=== PATIENT | female | born 1935 ===

== ENCOUNTER 2017-06-08 21:10 | Observation (INO) | payer MEDICARE ==
[2017-06-08 21:10] VITALS: BMI 19.5
[2017-06-08 22:09] LABS: RBC URINE 1 /hpf (0-3); URINE BILIRUBIN NEGATIVE (NEGATIVE); URINE BLOOD NEGATIVE (NEGATIVE); URINE COLOR YELLOW (YELLOW); URINE GLUCOSE (UA) NEG (Normal); URINE KETONE NEGATIVE (NEGATIVE); URINE LEUKOCYTE ESTERASE NEG Leu/uL (Negative); URINE PROTEIN NEGATIVE (NEGATIVE); URINE UROBILINOGEN 0.2-1.0 mg/dL (0.2-1.0); WBC URINE 2 /hpf (0-5)
[2017-06-08 22:36] LABS: BASO % 0.4 % (0.0-2.0); EOS # 0.1 K/uL (0.0-0.7); EOS % 2.1 % (0.0-4.0); HEMATOCRIT 28.2 % (34.0-47.0); LYMPH % 29.1 % (20.0-40.0); MEAN CELL VOLUME 95.7 fl (81.0-99.0); MEAN CORPUSCULAR HEMOGLOBIN 32.6 pg (27.0-31.0); MEAN CORPUSCULAR HGB CONC 34.1 g/dL (33.0-37.0); MONO # 0.6 K/uL (0.0-0.8); MONO % 8.4 % (0.0-10.0); NEUT # 4.2 K/uL (1.8-7.0); WHITE BLOOD COUNT 6.9 K/uL (4.8-10.8)
[2017-06-08 22:43] LABS: PARTIAL THROMBOPLASTIN TIME 29.3 Seconds (25.6-37.1)
[2017-06-08 22:46] LABS: CALCIUM 9.5 mg/dL (8.4-10.2); POTASSIUM 3.8 MMOL/L (3.6-5.0)
[2017-06-08 22:57] LABS: TROPONIN I 0.019 ng/mL (0.00-0.120)
--- NOTE | 2017-06-08 23:13 | CT ---
EXAM: CT Head Without Intravenous Contrast CLINICAL HISTORY: 81 years old, female; Injury or trauma; Fall; Additional info: Head injury, confusion TECHNIQUE: Axial computed tomography images of the head/brain without intravenous contrast. All CT scans at this facility use one or more dose reduction techniques, viz.: automated exposure control; ma/kV adjustment per patient size (including targeted exams where dose is matched to indication; i.e. head); or iterative reconstruction technique. Coronal and sagittal reformatted images were created and reviewed. COMPARISON: No relevant prior studies available. FINDINGS: Brain: [id number] atrophy. No intracranial hemorrhage. No mass. Several scattered foci of decreased attenuation within periventricular/subcortical white matter. No edema. Ventricles: No hydrocephalus. Bones/joints: No acute fracture. Soft tissues: Unremarkable. Vasculature: Atherosclerotic disease of intracranial arteries. Sinuses: No acute sinusitis. Mastoid air cells: No mastoid effusion. Orbits: Unremarkable as visualized. IMPRESSION: 1. No intracranial hemorrhage. 2. Nonspecific white matter changes. 3. Incidental/non-acute findings are described above.
--- NOTE | 2017-06-08 23:55 | ED PDOC ---
HPI: Altered Mental Status Time Seen by Provider: 06/08/17 21:24 Chief Complaint (Nursing): Chest Pain Chief Complaint (Provider): chest pain History Per: Patient, Family (granddaughter) History/Exam Limitations: Clinical Condition (dementia) Onset/Duration Of Symptoms: Hrs (x3) Current Symptoms Are (Timing): Still Present Additional Complaint(s): 81 year old female with previous medical history of diabetes, hypertension and hypercholesterolemia, who presents to the emergency department with a complaint of chest pain radiating to left arm ongoing 3 hours prior to arrival. Denied any shortness of breath. Patient's granddaughter reported patient has been confused lately with history of frequent falls that resulted in a head injury. PMD: Kam Nowak Jr. NIHSS Stroke Scale - Date/Time Evaluation Performed Date Performed: 06/08/17 Time Performed: 21:30 When Was NIHSS Performed: Baseline - How Severe is the Stroke Level of Consciousness: 0=Alert LOC to Questions: 0=Both comments correct LOC to commands: 0=Obeys both correctly Best Gaze: 0=Normal Visual: 0=No visual loss Facial: 0=Normal Motor Arm - Left: 0=No drift Motor Arm - Right: 0=No drift Motor Leg - Left: 0=No drift Motor Leg - Right: 0=No drift Limb Ataxia: 0=Absent Sensory: 0=Normal Best Language: 0=No aphasia Dysarthia: 0=Normal articulation Extinction & Inattention (Neglect): 0=Normal, no object Score: 0 Severity Of Stroke: 0 = No Stroke Past Medical History Reviewed: Historical Data, Nursing Documentation, Vital Signs Vital Signs: Last Vital Signs Temp 97.3 F L 06/08/17 21:13 Pulse 77 06/08/17 21:13 Resp 16 06/08/17 21:13 BP 143/59 L 06/08/17 21:13 Pulse Ox 98 06/08/17 21:13 - Medical History PMH: Anemia, Anxiety, Cardia Arrhythmia, CHF, Depression, HTN, Hypercholesterolemia, Hypothyroidism Denies: Chronic Kidney Disease - Surgical History Surgical History: Endoscopy, Pacemaker Denies: No Surg Hx - Family History Family History: States: Unknown Family Hx - Social History Current smoker - smoking cessation education provided: No Ex-Smoker (has not smoked in the last 12 months): No Alcohol: None Drugs: Denies - Immunization History Hx Tetanus Toxoid Vaccination: No Hx Influenza Vaccination: No - Home Medications Home Medications: Ambulatory Orders Medication Instructions Recorded Carvedilol [Coreg] 1 tab PO BID 05/31/16 Digoxin [Lanoxin] 1 tab PO DAILY 05/31/16 Escitalopram [Lexapro] 1 tab PO DAILY 05/31/16 Fenofibrate,Micronized [Lofibra] 1 cap PO HS 05/31/16 Furosemide [Lasix] 1 tab PO DAILY 05/31/16 Glimepiride [Amaryl] 1 tab PO BID 05/31/16 Insulin Aspart/Insulin Aspar 35 unit SC BID 05/31/16 [Novolog Mix 70/30 (70/30 units/ml)] Levothyroxine [Synthroid] 1 tab PO DAILY 05/31/16 Memantine [Namenda] 1 tab PO DAILY 05/31/16 Valacyclovir HCl [Valacyclovir] 1 tab PO BID PRN 05/31/16 Zolpidem [Ambien] 1 tab PO HS 05/31/16 Aspirin [Ecotrin] 81 mg PO DAILY 07/18/16 Carvedilol [Coreg] 6.25 mg PO BID 07/18/16 Clopidogrel [Plavix] 75 mg PO DAILY 07/18/16 Digoxin [Lanoxin] 0.25 mg PO DAILY 07/18/16 Escitalopram [Lexapro] 10 mg PO DAILY 07/18/16 Fenofibrate,Micronized 134 mg PO HS 07/18/16 [Fenofibrate] Furosemide [Lasix] 40 mg PO DAILY 07/18/16 Glimepiride [Amaryl] 4 mg PO BID 07/18/16 Insulin Aspart/Insulin Aspar 30 units SUBCUT BID 07/18/16 [Novolog Mix 70/30 (70/30 units/ml) 10 ml] Levothyroxine [Synthroid] 0.075 mg PO DAILY 07/18/16 Memantine [Namenda] 5 mg PO DAILY 07/18/16 Ramipril [Altace] 10 mg PO DAILY 07/18/16 Zolpidem [Ambien] 10 mg PO HS 07/18/16 oxyCODONE/Acetaminophen [Percocet 1 tab PO .Q4-6 PRN 07/18/16 5/325 mg Tab] - Allergies Allergies/Adverse Reactions: Allergies Allergy/AdvReac Type Severity Reaction Status Date / Time No Known Allergies Allergy Verified 07/08/16 13:58 Review of Systems ROS Statement: Except As Marked, All Systems Reviewed And Found Negative Cardiovascular: Positive for: Chest Pain Respiratory: Negative for: Shortness of Breath Musculoskeletal: Positive for: Arm Pain (left) Neurological: Positive for: Confusion Physical Exam - Reviewed Nursing Documentation Reviewed: Yes Vital Signs Reviewed: Yes - Physical Exam Appears: Positive for: Well, Non-toxic, No Acute Distress Head Exam: Positive for: ATRAUMATIC, NORMAL INSPECTION, NORMOCEPHALIC Skin: Positive for: Normal Color Eye Exam: Positive for: Normal appearance, EOMI, PERRL. Negative for: Nystagmus ENT: Positive for: Normal ENT Inspection Neck: Positive for: Normal, Painless ROM Cardiovascular/Chest: Positive for: Regular Rate, Rhythm, Chest Non Tender Respiratory: Positive for: Normal Breath Sounds. Negative for: Decreased Breath Sounds, Respiratory Distress Extremity: Positive for: Normal ROM. Negative for: Tenderness, Pedal Edema, Calf Tenderness Neurologic/Psych: Positive for: Alert, flooring installer II-XII (intact), Oriented, Gait ( steady). Negative for: Motor/Sensory Deficits, Aphasia, Facial Droop - Laboratory Results Result Diagrams: 06/08/17 22:31 06/08/17 22:31 - ECG O2 Sat by Pulse Oximetry: 98 (RA) Pulse Ox Interpretation: Normal Medical Decision Making Medical Decision Making: Initial Impression: ACS vs. electrolyte abnormality vs. UTI Initial Plan: * CT head without contrast * EKG * BMP * Digoxin * Troponin I * CBC * PTT * PT * CXR * Aspirin chewable 162mg PO * Urine culture * Xray shoulder (left) * Urinalysis * Admit to hospital Scribe Attestation: Documented by Kate Ramires, acting as a scribe for Abdelrahman Reeves MD. Provider Scribe Attestation: All medical record entries made by the Scribe were at my direction and personally dictated by me. I have reviewed the chart and agree that the record accurately reflects my personal performance of the history, physical exam, medical decision making, and the department course for this patient. I have also personally directed, reviewed, and agree with the discharge instructions and disposition. Disposition - Disposition Disposition Time: 23:36
--- NOTE | 2017-06-09 00:22 | ED PDOC ---
HPI: Chest Pain Time Seen by Provider: 06/08/17 21:24 Chief Complaint (Nursing): Chest Pain Chief Complaint (Provider): Chest Pain History Per: Patient, Family (granddaughter) History/Exam Limitations: clinical condition (dementia) Onset/Duration Of Symptoms: Hrs (x3) Current Symptoms Are (Timing): Still Present Additional Complaint(s): 81 year old female with previous medical history of diabetes, hypertension and hypercholesterolemia, who presents to the emergency department with a complaint of chest pain radiating to left arm ongoing 3 hours prior to arrival. Denied any shortness of breath. Patient's granddaughter reported patient has been confused lately with history of frequent falls that resulted in a head injury. PMD: Kam Nowak Jr. NIHSS Stroke Scale - Date/Time Evaluation Performed Date Performed: 06/09/17 When Was NIHSS Performed: Baseline - How Severe is the Stroke Level of Consciousness: 0=Alert LOC to Questions: 0=Both comments correct LOC to commands: 0=Obeys both correctly Best Gaze: 0=Normal Visual: 0=No visual loss Facial: 0=Normal Motor Arm - Left: 0=No drift Motor Arm - Right: 0=No drift Motor Leg - Left: 0=No drift Motor Leg - Right: 0=No drift Limb Ataxia: 0=Absent Sensory: 0=Normal Best Language: 0=No aphasia Dysarthia: 0=Normal articulation Extinction & Inattention (Neglect): 0=Normal, no object Score: 0 Severity Of Stroke: 0 = No Stroke Past Medical History Reviewed: Historical Data, Nursing Documentation, Vital Signs Vital Signs: Last Vital Signs Temp 98.3 F 06/09/17 01:40 Pulse 70 06/09/17 02:03 Resp 18 06/09/17 02:03 BP 154/55 H 06/09/17 01:40 Pulse Ox 99 06/09/17 01:40 - Medical History PMH: Anemia, Anxiety, Cardia Arrhythmia, CHF, Depression, Diabetes, HTN, Hypercholesterolemia, Hypothyroidism Denies: Chronic Kidney Disease - Surgical History Surgical History: Endoscopy, Pacemaker Denies: No Surg Hx - Family History Family History: States: Unknown Family Hx - Social History Current smoker - smoking cessation education provided: No Ex-Smoker (has not smoked in the last 12 months): No Alcohol: None Drugs: Denies - Immunization History Hx Tetanus Toxoid Vaccination: No Hx Influenza Vaccination: No - Home Medications Home Medications: Ambulatory Orders Medication Instructions Recorded Escitalopram [Lexapro] 1 tab PO DAILY 05/31/16 Fenofibrate,Micronized [Lofibra] 1 cap PO HS 05/31/16 Memantine [Namenda] 1 tab PO DAILY 05/31/16 Valacyclovir HCl [Valacyclovir] 1 tab PO BID PRN 05/31/16 Zolpidem [Ambien] 1 tab PO HS 05/31/16 Aspirin [Ecotrin] 81 mg PO DAILY 07/18/16 Carvedilol [Coreg] 6.25 mg PO BID 07/18/16 Clopidogrel [Plavix] 75 mg PO DAILY 07/18/16 Digoxin [Lanoxin] 0.25 mg PO DAILY 07/18/16 Furosemide [Lasix] 40 mg PO DAILY 07/18/16 Glimepiride [Amaryl] 4 mg PO BID 07/18/16 Insulin Aspart/Insulin Aspar 30 units SUBCUT BID 07/18/16 [Novolog Mix 70/30 (70/30 units/ml) 10 ml] Levothyroxine [Synthroid] 0.075 mg PO DAILY 07/18/16 Memantine [Namenda] 5 mg PO DAILY 07/18/16 Ramipril [Altace] 10 mg PO DAILY 07/18/16 Zolpidem [Ambien] 10 mg PO HS 07/18/16 oxyCODONE/Acetaminophen [Percocet 1 tab PO .Q4-6 PRN 07/18/16 5/325 mg Tab] - Allergies Allergies/Adverse Reactions: Allergies Allergy/AdvReac Type Severity Reaction Status Date / Time No Known Allergies Allergy Verified 07/08/16 13:58 Review of Systems ROS Statement: Except As Marked, All Systems Reviewed And Found Negative Cardiovascular: Positive for: Chest Pain Respiratory: Negative for: Shortness of Breath Musculoskeletal: Positive for: Arm Pain (left) Neurological: Positive for: Confusion (dementia hx) Physical Exam - Reviewed Nursing Documentation Reviewed: Yes Vital Signs Reviewed: Yes - Physical Exam Appears: Positive for: Well, Non-toxic, No Acute Distress Head Exam: Positive for: ATRAUMATIC, NORMAL INSPECTION, NORMOCEPHALIC Skin: Positive for: Normal Color Eye Exam: Positive for: Normal appearance ENT: Positive for: Normal ENT Inspection Neck: Positive for: Normal, Painless ROM Cardiovascular/Chest: Positive for: Regular Rate, Rhythm, Chest Non Tender Respiratory: Positive for: Normal Breath Sounds. Negative for: Decreased Breath Sounds, Respiratory Distress Extremity: Positive for: Normal ROM. 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 Negative for: Motor/Sensory Deficits, Aphasia - Laboratory Results Result Diagrams: 06/08/17 22:31 06/08/17 22:31 - ECG O2 Sat by Pulse Oximetry: 98 (RA) Pulse Ox Interpretation: Normal Medical Decision Making Medical Decision Making: Initial Impression: ACS vs. electrolyte abnormality vs. UTI Initial Plan: * CT head without contrast * EKG * BMP * Digoxin * Troponin I * CBC * PTTPT * CXR * Aspirin chewable 162mg PO * Urine culture * Xray shoulder (left) * Urinalysis * Admit to hospital 030 Pt. has signifcant cardiac risk factors requiring OBS for r/o ACS with serial troponins and continuous cardiac monitoring. Dr. Chacko aware. Scribe Attestation: Documented by Kate Ramires, acting as a scribe for Abdelrahman Reeves MD. Provider Scribe Attestation: All medical record entries made by the Scribe were at my direction and personally dictated by me. I have reviewed the chart and agree that the record accurately reflects my personal performance of the history, physical exam, medical decision making, and the department course for this patient. I have also personally directed, reviewed, and agree with the discharge instructions and disposition. Disposition - Clinical Impression Clinical Impression: Chest pain - Patient ED Disposition Is Patient to be Admitted: No - Disposition Disposition Time: 00:30 Condition: STABLE
[2017-06-09 05:47] LABS: HEMATOCRIT 27.2 % (34.0-47.0); MEAN CELL VOLUME 96.7 fl (81.0-99.0); MEAN CORPUSCULAR HGB CONC 34.1 g/dL (33.0-37.0); WHITE BLOOD COUNT 5.6 K/uL (4.8-10.8)
[2017-06-09] MEDS ORDERED: Levothyroxine 75 MCG TAB PO SCH (06:30)
[2017-06-09] MEDS: Insulin Lispro (humaLOG) 100 Units/ml Inj SC SCH ×3 (06:34→16:32)
[2017-06-09 07:07] LABS: POTASSIUM 3.8 MMOL/L (3.6-5.0)
[2017-06-09 07:18] LABS: TROPONIN I 0.024 ng/mL (0.00-0.120)
[2017-06-09 08:02] LABS: THYROID STIMULATING HORMONE 1.14 mIU/ML (0.46-4.68)
--- NOTE | 2017-06-09 08:06 | RAD ---
HISTORY: cp COMPARISON: No prior. TECHNIQUE: Chest PA and lateral FINDINGS: LUNGS: No active pulmonary disease. PLEURA: No significant pleural effusion identified. No pneumothorax apparent. CARDIOVASCULAR: Implanted defibrillator, pacemaker device identified by an apparent left subclavian approach with 2 leads identified in the plane of the heart. Cardiac size appears normal. No pulmonary vascular derangement identified. OSSEOUS STRUCTURES: No significant abnormalities. VISUALIZED UPPER ABDOMEN: Normal. OTHER FINDINGS: None. IMPRESSION: No acute cardiopulmonary disease appreciated. Pacemaker/defibrillator in position.
--- NOTE | 2017-06-09 08:16 | RAD ---
PROCEDURE: Radiographs of the Left Shoulder HISTORY: s/p fall COMPARISON: No prior. FINDINGS: BONES: No acute fracture or destructive bony lesion identified. JOINTS: Degenerative changes are mild at the acromioclavicular and glenohumeral joints. No subluxation or dislocation. SOFT TISSUES: Normal. OTHER FINDINGS: Incidental note is made of cardiac pacemaker/ did implanted defibrillator in position with generator the left pectoralis region and leads extending into the mediastinum. IMPRESSION: No acute fracture or dislocation left shoulder. Limited degenerative changes are identified as per above.
[2017-06-09] MEDS ORDERED: INSULIN ASPAR SUBCUT SCH (09:00)
[2017-06-09] MEDS ORDERED: Digoxin 250 mcg (0.25 mg) Tab PO SCH (09:00)
[2017-06-09] MEDS ORDERED: Patient's Own Med (Glimepiride [Amaryl] 4 MG) PO SCH (09:00)
[2017-06-09] MEDS ORDERED: Patient's Own Med (Ramipril [Altace] 10 MG) PO SCH (09:00)
[2017-06-09] MEDS ORDERED: INSULIN ASPART SUBCUT SCH (09:00)
[2017-06-09] MEDS ORDERED: [UNRECOGNIZED DRUG - OTHER] SUBCUT SCH (09:00)
[2017-06-09] MEDS: GlipiZIDE 10 mg SR Tab PO SCH ×2 (09:13→16:31)
[2017-06-09] MEDS: Insulin Lispro Mix 75/25 100 units/ml (HumaLog) 10ml SC SCH ×2 (09:15→16:39)
[2017-06-09 09:23] VITALS: PULSE 64
--- NOTE | 2017-06-09 10:25 | CP.PCM.CON ---
History of Present Illness - History of Present Illness History of Present Illness: This 81- year-old female, a diabetic for more than 20 years and a hypertensive came to the emergency room complaining of chest discomfort quite unconnected to her physical activities. The patient is known to have peripheral vascular disease and has had episodes of claudication on walking briskly. Her daughter indicates that she also had had a myocardial infarction some years back but no coronary intervention was done. She required a permanent pacemaker 2 years back which was implanted for slow heartbeat. The patient denies any symptoms of congestive cardiac failure. Physical examination shows an elderly lady who is alert awake weren't and afebrile. Her heart rate was 70 bpm regular and the telemetric showed mostly atrial sensed ventricular paced rhythm. Her blood pressure chano 140/70 mmHg in the right upper extremity. Her pedal pulses were not palpable. Her extremities were warm her nailbeds were pink was no central or peripheral cyanosis. A brief bruit was audible on the right carotid artery. Her jugular venous pressure was not elevated and there was no edema over her lower extremities. The apex was vaguely felt in the 6 nightly heaving in character. The first heart sound was normal. A long apical systolic murmur of mitral regurgitation was evident. There was no S3 gallop. There were no rales. Abdomen was soft liver and spleen are not palpable. Her electrocardiogram shows sinus rhythm with a nonspecific intraventricular conduction abnormality and attendant ST-T abnormalities. There were no Q waves on the electrocardiogram. Her labs show stable troponin levels indicating no evidence of myocyte injury. She had a mild degree of azotemia and a depressed GFR indicated of diabetic nephropathy. Impression: Atypical chest pain no evidence of acute coronary syndrome in a patient with known coronary artery disease and peripheral arterial disease as well as carotid bruit. Status post DDD pacemaker implant. 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 Past Patient History - Past Medical History & Family History Past Medical History?: Yes - Past Social History Alcohol: None Drugs: Denies - CARDIAC Hx Cardia Arrhythmia: Yes Hx Congestive Heart Failure: Yes Hx Hypercholesterolemia: Yes Hx Hypertension: Yes Hx Pacemaker: Yes - PULMONARY Hx Respiratory Disorders: No - NEUROLOGICAL Hx Neurological Disorder: Yes Hx Dementia: Yes - HEENT Hx HEENT Problems: No - RENAL Hx Chronic Kidney Disease: No - ENDOCRINE/METABOLIC Hx Hypothyroidism: Yes - HEMATOLOGICAL/ONCOLOGICAL Hx Anemia: Yes - INTEGUMENTARY Hx Dermatological Problems: No - MUSCULOSKELETAL/RHEUMATOLOGICAL Hx Musculoskeletal Disorders: Yes Hx Arthritis: Yes Hx Falls: Yes - GASTROINTESTINAL Hx Gastrointestinal Disorders: No - GENITOURINARY/GYNECOLOGICAL Hx Genitourinary Disorders: Yes Hx Incontinence: Yes (STRESS) Hx Reproductive Disorders: No - PSYCHIATRIC Hx Anxiety: Yes Hx Depression: Yes - SURGICAL HISTORY Hx Surgeries: Yes Hx Cataract Extraction: Yes (OU) Hx Section: Yes Hx Hysterectomy: Yes - ANESTHESIA Hx Anesthesia: Yes Hx Anesthesia Reactions: No Hx Malignant Hyperthermia: No Has any member of the family had a problem w/ anesthesia?: No Meds Allergies/Adverse Reactions: Allergies Allergy/AdvReac Type Severity Reaction Status Date / Time No Known Allergies Allergy Verified 07/08/16 13:58 - Medications Medications: Current Medications Carvedilol (Coreg) 6.25 mg PO BID [facility] Clopidogrel Bisulfate (Plavix) 75 mg PO DAILY [facility] Last Admin: 06/09/17 09:21 Dose: 75 mg Digoxin (Lanoxin) 0.25 mg PO DAILY [facility] Last Admin: 06/09/17 09:14 Dose: 0.25 mg Escitalopram Oxalate (Lexapro) 10 mg PO DAILY [facility] Last Admin: 06/09/17 09:13 Dose: 10 mg Fenofibrate (Tricor) 145 mg PO HS [facility] Furosemide (Lasix) 40 mg PO DAILY [facility] Last Admin: 06/09/17 09:21 Dose: 40 mg Glipizide (Glucotrol Xl) 10 mg PO BIDWM [facility] Last Admin: 06/09/17 09:13 Dose: 10 mg Heparin Sodium (Porcine) (Heparin) 5,000 units SC Q8 [facility] PRN Reason: Protocol Last Admin: 06/09/17 09:17 Dose: 5,000 units Insulin Human Lispro (Humalog) 0 units SC ACHS [facility] PRN Reason: Protocol Last Admin: 06/09/17 06:34 Dose: 2 units Insulin Lispro Protam/Lispro Human (Humalog Mix 75/25) 30 units SC BID [facility] Last Admin: 06/09/17 09:15 Dose: 30 units Levothyroxine Sodium (Synthroid) 75 mcg PO DAILY@0630 [facility] Memantine (Namenda) 5 mg PO DAILY [facility] Ramipril (Altace) 10 mg PO DAILY [facility] Last Admin: 06/09/17 09:14 Dose: 10 mg Zolpidem Tartrate (Ambien) 5 mg PO HS PRN PRN Reason: Sleep Results - Vital Signs Recent Vital Signs: Last Vital Signs Temp 97.6 F 06/09/17 07:58 Pulse 59 L 06/09/17 07:58 Resp 18 06/09/17 07:58 BP 144/65 06/09/17 09:21 Pulse Ox 98 06/09/17 07:58 - Labs Result Diagrams: 06/09/17 05:34 06/09/17 06:00 Labs: Laboratory Results - last 24 hr 06/08/17 06/08/17 06/08/17 21:55 22:31 22:31 WBC 6.9 RBC 2.94 L Hgb 9.6 L Hct 28.2 L MCV 95.7 MCH 32.6 H MCHC 34.1 RDW 13.0 Plt Count 155 MPV 8.0 Neut % (Auto) 60.0 Lymph % (Auto) 29.1 [place] % (Auto) 8.4 Eos % (Auto) 2.1 Baso % (Auto) 0.4 Neut # 4.2 Lymph # 2.0 [place] # 0.6 Eos # 0.1 Baso # 0.0 PT INR APTT Sodium 135 Potassium 3.8 Chloride 98 Carbon Dioxide 27 Anion Gap 14 BUN 48 H Creatinine 1.5 H Est GFR ( Amer) 40 Est GFR (Non-Af Amer) 33 POC Glucose (mg/dL) Random Glucose 94 Calcium 9.5 Troponin I 0.0190 Triglycerides Cholesterol LDL Cholesterol Direct HDL Cholesterol TSH 3rd Generation Urine Color Yellow Urine Clarity Clear Urine pH 6.0 Ur Specific Sanderson 1.008 Urine Protein Negative Urine Glucose (UA) Neg Urine Ketones Negative Urine Blood Negative Urine Nitrate Negative Urine Bilirubin Negative Urine Urobilinogen 0.2-1.0 Ur Leukocyte Esterase Neg Urine RBC (Auto) 1 Urine Microscopic WBC 2 Ur Squamous Epith Cells 1 Digoxin 06/08/17 06/08/17 06/09/17 22:31 22:31 00:06 WBC RBC Hgb Hct MCV MCH MCHC RDW Plt Count MPV Neut % (Auto) Lymph % (Auto) [place] % (Auto) Eos % (Auto) Baso % (Auto) Neut # Lymph # [place] # Eos # Baso # PT 12.4 INR 1.1 APTT 29.3 Sodium Potassium Chloride Carbon Dioxide Anion Gap BUN Creatinine Est GFR ( Amer) Est GFR (Non-Af Amer) POC Glucose (mg/dL) 70 Random Glucose Calcium Troponin I Triglycerides Cholesterol LDL Cholesterol Direct HDL Cholesterol TSH 3rd Generation Urine Color Urine Clarity Urine pH Ur Specific Sanderson Urine Protein Urine Glucose (UA) Urine Ketones Urine Blood Urine Nitrate Urine Bilirubin Urine Urobilinogen Ur Leukocyte Esterase Urine RBC (Auto) Urine Microscopic WBC Ur Squamous Epith Cells Digoxin 1.7 06/09/17 06/09/17 06/09/17 05:28 05:34 06:00 WBC 5.6 RBC 2.81 L Hgb 9.3 L Hct 27.2 L MCV 96.7 MCH 33.0 H MCHC 34.1 RDW 13.0 Plt Count 146 MPV Neut % (Auto) Lymph % (Auto) [place] % (Auto) Eos % (Auto) Baso % (Auto) Neut # Lymph # [place] # Eos # Baso # PT INR APTT Sodium 136 Potassium 3.8 Chloride 97 L Carbon Dioxide 28 Anion Gap 15 BUN 46 H Creatinine 1.3 H Est GFR ( Amer) 48 Est GFR (Non-Af Amer) 39 POC Glucose (mg/dL) 223 H Random Glucose 239 H Calcium 9.0 Troponin I 0.0240 Triglycerides Cholesterol LDL Cholesterol Direct HDL Cholesterol TSH 3rd Generation Urine Color Urine Clarity Urine pH Ur Specific Sanderson Urine Protein Urine Glucose (UA) Urine Ketones Urine Blood Urine Nitrate Urine Bilirubin Urine Urobilinogen Ur Leukocyte Esterase Urine RBC (Auto) Urine Microscopic WBC Ur Squamous Epith Cells Digoxin 06/09/17 06:00 WBC RBC Hgb Hct MCV MCH MCHC RDW Plt Count MPV Neut % (Auto) Lymph % (Auto) [place] % (Auto) Eos % (Auto) Baso % (Auto) Neut # Lymph # [place] # Eos # Baso # PT INR APTT Sodium Potassium Chloride Carbon Dioxide Anion Gap BUN Creatinine Est GFR ( Amer) Est GFR (Non-Af Amer) POC Glucose (mg/dL) Random Glucose Calcium Troponin I Triglycerides 225 H Cholesterol 148 LDL Cholesterol Direct 72 HDL Cholesterol 24 L TSH 3rd Generation 1.14 Urine Color Urine Clarity Urine pH Ur Specific Sanderson Urine Protein Urine Glucose (UA) Urine Ketones Urine Blood Urine Nitrate Urine Bilirubin Urine Urobilinogen Ur Leukocyte Esterase Urine RBC (Auto) Urine Microscopic WBC Ur Squamous Epith Cells Digoxin
[2017-06-09 15:33] VITALS: RESP 20
--- NOTE | 2017-06-09 15:52 | CARD ---
APPROVED REPORT EKG Measurement Heart [id number] <Conclusion> Normal sinus rhythm Nonspecific intraventricular block Abnormal ECG
--- NOTE | 2017-06-09 17:52 | CP.PCM.HP ---
Past Patient History - Past Medical History & Family History Past Medical History?: Yes - Past Social History Alcohol: None Drugs: Denies - CARDIAC Hx Cardia Arrhythmia: Yes Hx Congestive Heart Failure: Yes Hx Hypercholesterolemia: Yes Hx Hypertension: Yes Hx Pacemaker: Yes - PULMONARY Hx Respiratory Disorders: No - NEUROLOGICAL Hx Neurological Disorder: Yes Hx Dementia: Yes - HEENT Hx HEENT Problems: No - RENAL Hx Chronic Kidney Disease: No - ENDOCRINE/METABOLIC Hx Hypothyroidism: Yes - HEMATOLOGICAL/ONCOLOGICAL Hx Anemia: Yes - INTEGUMENTARY Hx Dermatological Problems: No - MUSCULOSKELETAL/RHEUMATOLOGICAL Hx Musculoskeletal Disorders: Yes Hx Arthritis: Yes Hx Falls: Yes - GASTROINTESTINAL Hx Gastrointestinal Disorders: No - GENITOURINARY/GYNECOLOGICAL Hx Genitourinary Disorders: Yes Hx Incontinence: Yes (STRESS) Hx Reproductive Disorders: No - PSYCHIATRIC Hx Anxiety: Yes Hx Depression: Yes - SURGICAL HISTORY Hx Surgeries: Yes Hx Cataract Extraction: Yes (OU) Hx Section: Yes Hx Hysterectomy: Yes - ANESTHESIA Hx Anesthesia: Yes Hx Anesthesia Reactions: No Hx Malignant Hyperthermia: No Has any member of the family had a problem w/ anesthesia?: No Meds Allergies/Adverse Reactions: Allergies Allergy/AdvReac Type Severity Reaction Status Date / Time No Known Allergies Allergy Verified 07/08/16 13:58 Results - Vital Signs Recent Vital Signs: Last Vital Signs Temp 98.1 F 06/09/17 15:32 Pulse 63 06/09/17 16:31 Resp 20 06/09/17 15:32 BP 173/56 H 06/09/17 16:31 Pulse Ox 98 06/09/17 15:32 - Labs Result Diagrams: 06/09/17 05:34 06/09/17 06:00 Labs: Laboratory Results - last 24 hr 06/08/17 06/08/17 06/08/17 21:55 22:31 22:31 WBC 6.9 RBC 2.94 L Hgb 9.6 L Hct 28.2 L MCV 95.7 MCH 32.6 H MCHC 34.1 RDW 13.0 Plt Count 155 MPV 8.0 Neut % (Auto) 60.0 Lymph % (Auto) 29.1 [place] % (Auto) 8.4 Eos % (Auto) 2.1 Baso % (Auto) 0.4 Neut # 4.2 Lymph # 2.0 [place] # 0.6 Eos # 0.1 Baso # 0.0 PT INR APTT Sodium 135 Potassium 3.8 Chloride 98 Carbon Dioxide 27 Anion Gap 14 BUN 48 H Creatinine 1.5 H Est GFR ( Amer) 40 Est GFR (Non-Af Amer) 33 POC Glucose (mg/dL) Random Glucose 94 Hemoglobin A1c Calcium 9.5 Troponin I 0.0190 Triglycerides Cholesterol LDL Cholesterol Direct HDL Cholesterol TSH 3rd Generation Urine Color Yellow Urine Clarity Clear Urine pH 6.0 Ur Specific [place] 1.008 Urine Protein Negative Urine Glucose (UA) Neg Urine Ketones Negative Urine Blood Negative Urine Nitrate Negative Urine Bilirubin Negative Urine Urobilinogen 0.2-1.0 Ur Leukocyte Esterase Neg Urine RBC (Auto) 1 Urine Microscopic WBC 2 Ur Squamous Epith Cells 1 Digoxin 06/08/17 06/08/17 06/09/17 22:31 22:31 00:06 WBC RBC Hgb Hct MCV MCH MCHC RDW Plt Count MPV Neut % (Auto) Lymph % (Auto) [place] % (Auto) Eos % (Auto) Baso % (Auto) Neut # Lymph # [place] # Eos # Baso # PT 12.4 INR 1.1 APTT 29.3 Sodium Potassium Chloride Carbon Dioxide Anion Gap BUN Creatinine Est GFR ( Amer) Est GFR (Non-Af Amer) POC Glucose (mg/dL) 70 Random Glucose Hemoglobin A1c Calcium Troponin I Triglycerides Cholesterol LDL Cholesterol Direct HDL Cholesterol TSH 3rd Generation Urine Color Urine Clarity Urine pH Ur Specific [place] Urine Protein Urine Glucose (UA) Urine Ketones Urine Blood Urine Nitrate Urine Bilirubin Urine Urobilinogen Ur Leukocyte Esterase Urine RBC (Auto) Urine Microscopic WBC Ur Squamous Epith Cells Digoxin 1.7 06/09/17 06/09/17 06/09/17 05:28 05:34 06:00 WBC 5.6 RBC 2.81 L Hgb 9.3 L Hct 27.2 L MCV 96.7 MCH 33.0 H MCHC 34.1 RDW 13.0 Plt Count 146 MPV Neut % (Auto) Lymph % (Auto) [place] % (Auto) Eos % (Auto) Baso % (Auto) Neut # Lymph # [place] # Eos # Baso # PT INR APTT Sodium 136 Potassium 3.8 Chloride 97 L Carbon Dioxide 28 Anion Gap 15 BUN 46 H Creatinine 1.3 H Est GFR ( Amer) 48 Est GFR (Non-Af Amer) 39 POC Glucose (mg/dL) 223 H Random Glucose 239 H Hemoglobin A1c Calcium 9.0 Troponin I 0.0240 Triglycerides Cholesterol LDL Cholesterol Direct HDL Cholesterol TSH 3rd Generation Urine Color Urine Clarity Urine pH Ur Specific [place] Urine Protein Urine Glucose (UA) Urine Ketones Urine Blood Urine Nitrate Urine Bilirubin Urine Urobilinogen Ur Leukocyte Esterase Urine RBC (Auto) Urine Microscopic WBC Ur Squamous Epith Cells Digoxin 06/09/17 06/09/17 06/09/17 06:00 06:00 11:20 WBC RBC Hgb Hct MCV MCH MCHC RDW Plt Count MPV Neut % (Auto) Lymph % (Auto) [place] % (Auto) Eos % (Auto) Baso % (Auto) Neut # Lymph # [place] # Eos # Baso # PT INR APTT Sodium Potassium Chloride Carbon Dioxide Anion Gap BUN Creatinine Est GFR ( Amer) Est GFR (Non-Af Amer) POC Glucose (mg/dL) 247 H Random Glucose Hemoglobin A1c 6.5 Calcium Troponin I Triglycerides 225 H Cholesterol 148 LDL Cholesterol Direct 72 HDL Cholesterol 24 L TSH 3rd Generation 1.14 Urine Color Urine Clarity Urine pH Ur Specific [place] Urine Protein Urine Glucose (UA) Urine Ketones Urine Blood Urine Nitrate Urine Bilirubin Urine Urobilinogen Ur Leukocyte Esterase Urine RBC (Auto) Urine Microscopic WBC Ur Squamous Epith Cells Digoxin 06/09/17 06/09/17 15:13 15:53 WBC RBC Hgb Hct MCV MCH MCHC RDW Plt Count MPV Neut % (Auto) Lymph % (Auto) [place] % (Auto) Eos % (Auto) Baso % (Auto) Neut # Lymph # [place] # Eos # Baso # PT INR APTT Sodium Potassium Chloride Carbon Dioxide Anion Gap BUN Creatinine Est GFR ( Amer) Est GFR (Non-Af Amer) POC Glucose (mg/dL) 295 H Random Glucose Hemoglobin A1c Calcium Troponin I 0.0230 Triglycerides Cholesterol LDL Cholesterol Direct HDL Cholesterol TSH 3rd Generation Urine Color Urine Clarity Urine pH Ur Specific [place] Urine Protein Urine Glucose (UA) Urine Ketones Urine Blood Urine Nitrate Urine Bilirubin Urine Urobilinogen Ur Leukocyte Esterase Urine RBC (Auto) Urine Microscopic WBC Ur Squamous Epith Cells Digoxin
[2017-06-09 20:02] VITALS: PULSE 66; O2SAT 99
[2017-06-09 20:03] VITALS: BP 158/64; TEMP 99
[2017-06-09] MEDS ORDERED: FENOFIBRATE MICRONIZED PO SCH (22:00)
--- NOTE | 2017-06-12 00:07 | CP.PCM.DIS ---
Provider - Provider Date of Admission: 06/08/17 23:36 Attending physician: Mercedes Chacko MD Time Spent in preparation of Discharge (in minutes): 25 Hospital Course - Lab Results Lab Results: Micro Results 06/08/17 21:55 Urine Urine Culture - Final No Growth (<1,000 CFU/ML) Most Recent Lab Values WBC 5.6 K/uL (4.8-10.8) 06/09/17 05:34 RBC 2.81 Mil/uL (3.80-5.20) L 06/09/17 05:34 Hgb 9.3 g/dL (12.0-16.0) L 06/09/17 05:34 Hct 27.2 % (34.0-47.0) L 06/09/17 05:34 MCV 96.7 fl (81.0-99.0) 06/09/17 05:34 MCH 33.0 pg (27.0-31.0) H 06/09/17 05:34 MCHC 34.1 g/dL (33.0-37.0) 06/09/17 05:34 RDW 13.0 % (11.5-14.5) 06/09/17 05:34 Plt Count 146 K/uL (130-400) 06/09/17 05:34 MPV 8.0 fl (7.2-11.7) 06/08/17 22:31 Neut % (Auto) 60.0 % (50.0-75.0) 06/08/17 22:31 Lymph % (Auto) 29.1 % (20.0-40.0) 06/08/17 22:31 [place] % (Auto) 8.4 % (0.0-10.0) 06/08/17 22:31 Eos % (Auto) 2.1 % (0.0-4.0) 06/08/17 22:31 Baso % (Auto) 0.4 % (0.0-2.0) 06/08/17 22:31 Neut # 4.2 K/uL (1.8-7.0) 06/08/17 22:31 Lymph # 2.0 K/uL (1.0-4.3) 06/08/17 22:31 [place] # 0.6 K/uL (0.0-0.8) 06/08/17 22:31 Eos # 0.1 K/uL (0.0-0.7) 06/08/17 22:31 Baso # 0.0 K/uL (0.0-0.2) 06/08/17 22:31 PT 12.4 Seconds (9.8-13.1) 06/08/17 22:31 INR 1.1 (0.9-1.2) 06/08/17 22:31 APTT 29.3 Seconds (25.6-37.1) 06/08/17 22:31 Sodium 136 mmol/l (132-148) 06/09/17 06:00 Potassium 3.8 MMOL/L (3.6-5.0) 06/09/17 06:00 Chloride 97 mmol/L (98-107) L 06/09/17 06:00 Carbon Dioxide 28 mmol/L (22-30) 06/09/17 06:00 Anion Gap 15 (10-20) 06/09/17 06:00 BUN 46 mg/dl (7-17) H 06/09/17 06:00 Creatinine 1.3 mg/dl (0.7-1.2) H 06/09/17 06:00 Est GFR ( Amer) 48 06/09/17 06:00 Est GFR (Non-Af Amer) 39 06/09/17 06:00 POC Glucose (mg/dL) 295 mg/dL (65-110) H 06/09/17 15:53 Random Glucose 239 mg/dL (65-105) H 06/09/17 06:00 Hemoglobin A1c 6.5 % (4.2-6.5) 06/09/17 06:00 Calcium 9.0 mg/dL (8.4-10.2) 06/09/17 06:00 Troponin I 0.0230 ng/mL (0.00-0.120) 06/09/17 15:13 Triglycerides 225 mg/DL (0-149) H 06/09/17 06:00 Cholesterol 148 mg/dL (0-199) 06/09/17 06:00 LDL Cholesterol Direct 72 mg/dL (0-129) 06/09/17 06:00 HDL Cholesterol 24 MG/DL (30-70) L 06/09/17 06:00 TSH 3rd Generation 1.14 mIU/ML (0.46-4.68) 06/09/17 06:00 Urine Color Yellow (YELLOW) 06/08/17 21:55 Urine Clarity Clear (Clear) 06/08/17 21:55 Urine pH 6.0 (5.0-8.0) 06/08/17 21:55 Ur Specific [place] 1.008 (1.003-1.030) 06/08/17 21:55 Urine Protein Negative mg/dL (NEGATIVE) 06/08/17 21:55 Urine Glucose (UA) Neg mg/dL (Normal) 06/08/17 21:55 Urine Ketones Negative mg/dL (NEGATIVE) 06/08/17 21:55 Urine Blood Negative (NEGATIVE) 06/08/17 21:55 Urine Nitrate Negative (NEGATIVE) 06/08/17 21:55 Urine Bilirubin Negative (NEGATIVE) 06/08/17 21:55 Urine Urobilinogen 0.2-1.0 mg/dL (0.2-1.0) 06/08/17 21:55 Ur Leukocyte Esterase Neg [place]/uL (Negative) 06/08/17 21:55 Urine RBC (Auto) 1 /hpf (0-3) 06/08/17 21:55 Urine Microscopic WBC 2 /hpf (0-5) 06/08/17 21:55 Ur Squamous Epith Cells 1 /hpf (0-5) 06/08/17 21:55 Digoxin 1.7 ng/mL (0.8-2.0) 06/08/17 22:31 Discharge Exam - Head Exam Head Exam: ATRAUMATIC, NORMAL INSPECTION, NORMOCEPHALIC Discharge Plan - Follow Up Plan Condition: STABLE Disposition: HOME/ ROUTINE
== END 2017-06-09 19:20 | disposition home or self-care (01) ==
LOC: H.ER 21:10 → H.ERHOLD 23:36 → H.TEL 06-09 01:39
PROVIDERS: ADMIT Internal Medicine; ATTEND Internal Medicine
DX: R07.89 Other chest pain (principal); I25.10 Atherosclerotic heart disease of native coronary artery without angina pectoris; E11.51 Type 2 diabetes mellitus with diabetic peripheral angiopathy without gangrene; Z95.0 Presence of cardiac pacemaker; E11.22 Type 2 diabetes mellitus with diabetic chronic kidney disease; I13.0 Hypertensive heart and chronic kidney disease with heart failure and stage 1 through stage 4 chronic kidney disease, or unspecified chronic kidney disease; N18.9 Chronic kidney disease, unspecified; I50.9 Heart failure, unspecified; E78.00 Pure hypercholesterolemia, unspecified; F41.9 Anxiety disorder, unspecified; F32.9 Major depressive disorder, single episode, unspecified; E03.9 Hypothyroidism, unspecified; F03.90 Unspecified dementia, unspecified severity, without behavioral disturbance, psychotic disturbance, mood disturbance, and anxiety